=== PATIENT | female | born 1980 | race Caucasian/White ===

== ENCOUNTER 2016-09-12 16:25 | Emergency (ER) | payer OTHER ==
[2016-09-12] MEDS ORDERED: Albuterol/Ipratropium NEB.SOL* Albuterol 2.5 MG/Ipratropium 0.5 MG 3 ML INH ONE (17:20)
[2016-09-12] MEDS ORDERED: Dexamethasone IV* 10 MG in NS 0.9% 50 ML* 50 ML IVPB ONE (17:20)
[2016-09-12] MEDS ORDERED: diPHENhydraMINE IV* 25 MG in NS 0.9% 50 ML* 50 ML IVPB ONE (17:20)
[2016-09-12] MEDS ORDERED: NS 0.9% 1000 ML* 1,000 ML IV ONE (17:22)
[2016-09-12] MEDS ORDERED: EPINEPHrine AMP 1 MG/ML IM ONE (17:22)
[2016-09-12] MEDS ORDERED: Dexamethasone IV* 4 MG/ML 1 ML (4 MG) IV SLOW PU ONE (17:22)
[2016-09-12 18:29] LABS: Hematocrit 36 % (35-47); Mean Corpuscular HGB Conc 33 g/dl (31-36); Mean Corpuscular Hemoglobin 29 pg (27-31); Mean Corpuscular Volume 89 fL (80-97); Mean Platelet Volume 8 um3 (7.4-10.4); Red Blood Count 4.09 10^6/ul (4.0-5.4); Red Cell Distribution Width 13 % (10.5-15); White Blood Count 13.2 10^3/ul (3.5-10.8)
[2016-09-12 18:44] LABS: BUN/Creatinine Ratio 9.2 (8-20); Calcium 8.2 mg/dL (8.6-10.3); EGFR African American 133.4 (>60); EGFR Non-African American 103.7 (>60)
[2016-09-12 18:45] LABS: Potassium 2.7 mmol/L (3.5-5.0)
[2016-09-12 18:50] VITALS: BP 103/49
[2016-09-12] MEDS ORDERED: KCL 20 MEQ/100 ML IVPREMIX* 20 MEQ/100 ML BAG IV ONE (18:56)
[2016-09-12] MEDS ORDERED: EPINEPHrine PEN ADULT(NF) 0.3 MG SYRINGE IM ONE (21:00)
--- NOTE | 2016-09-13 00:57 | ED ---
Finn Tate Salem, scribed for Herminio Williamson MD on 09/12/16 at 1717 . Allergic Reaction/Systemic - HPI Summary HPI Summary: Patient is a 35 y/o F who presents to the ED per EMS with an allergic reaction s /p bee sting since 8-10 minutes [employer]. Pt received two doses of epinephrine, one dose of Benadryl en route, as well as a Duoneb and Albuterol. EMS denies giving any steroids. She reports SOB, throat tightening, and chest tightening, but denies hives. PMHx of Asthma. Pt denies EtOH or tobacco use. - History of Current Complaint Chief Complaint: EDAllergicReaction Hx Obtained From: Patient, EMS Hx Last Menstrual Period: 03/16/16 Onset/Duration: Gradual Onset, Started minutes ago, Still Present Timing: Constant Severity Initially: Moderate Severity Currently: Moderate Location: Diffuse Character: Swelling Aggravating Factor(s): Nothing Alleviating Factor(s): Antihistamines, Epinephrine Associated Signs And Symptoms: Positive: Difficulty Breathing, Throat Tightening - Allergies/Home Medications Allergies/Adverse Reactions: Allergies Allergy/AdvReac Type Severity Reaction Status Date / Time Morphine Allergy Intermediate Hives Verified 03/21/16 19:46 Clavulanic Acid Allergy Unknown Verified 03/21/16 19:46 [From Augmentin] Reaction Details PMH/Surg Hx/FS Hx/Imm Hx Endocrine/Hematology History: Reports: Hx Thyroid Disease Denies: Hx Diabetes Cardiovascular History: Denies: Hx Congestive Heart Failure, Hx Deep Vein Thrombosis, Hx Hypertension , Hx Myocardial Infarction, Hx Pacemaker/ICD Respiratory History: Reports: Hx Asthma Denies: Hx Chronic Obstructive Pulmonary Disease (COPD), Hx Lung Cancer, Hx Pneumonia, Hx Pulmonary Embolism GI History: Denies: Hx Gall Bladder Disease, Hx Gastrointestinal Bleed, Hx Ulcer, Hx Urosepsis History: Denies: Hx Kidney Stones, Hx Renal Disease Neurological History: Denies: Hx Dementia, Hx Migraine, Hx Seizures, Hx Transient Ischemic Attacks (TIA) Psychiatric History: Denies: Hx Anxiety, Hx Depression, Hx Schizophrenia, Hx Bipolar Disorder - Surgical History Surgery Procedure, Year, and Place: FOUR C SECTIONS,T&A, tubal ligation Infectious Disease History: Denies: Hx Clostridium Difficile, Hx Hepatitis, Hx Human Immunodeficiency Virus (HIV), Hx of Known/Suspected MRSA, Hx Shingles, Hx Tuberculosis, Hx Known/ Suspected VRE, Hx Known/Suspected VRSA, History Other Infectious Disease - Family History Known Family History: Negative: Cardiac Disease, Diabetes - Social History Alcohol Use: Occasionally Hx Substance Use: No Substance Use Type: Reports: None Hx Tobacco Use: No Smoking Status (MU): Never Smoked Tobacco Review of Systems Negative: Fever, Chills Negative: Erythema Positive: Other - Throat tightening. . Negative: Sore Throat Positive: Chest Pain Positive: Shortness Of Breath, Other - Chest tightening. . Negative: Cough Negative: Abdominal Pain, Vomiting, Nausea Negative: dysuria, hematuria Negative: Myalgia, Edema Skin: Other - No hives. Negative: Rash Neurological: Other - No dizziness. All Other Systems Reviewed And Are Negative: Yes Physical Exam - Summary Physical Exam Summary: Constitutional: Well-developed, Well-nourished, Alert. (-), Flushed skin. Skin: Warm, Dry. Bee sting to top of right breast. HENT: Normocephalic; Atraumatic, No angioedema. Eyes: Conjunctiva normal Neck: Musculoskeletal ROM normal neck. (-) JVD, (-) Stridor, (-) Tracheal deviation Cardio: Rhythm regular, rate normal, Heart sounds normal; Intact distal pulses; The pedal pulses are 2+ and symmetric. Radial pulses are 2+ and symmetric. (-) Murmur Pulmonary/Chest wall: Expiratory wheezing. No stridor. Abd: Soft, (-) Tenderness, (-) Distension, (-) Guarding, (-) Rebound Musculoskeletal: (-) Edema Lymph: (-) Cervical adenopathy Neuro: Alert, Oriented x3 Psych: Mood and affect Normal Triage Information Reviewed: Yes Vital Signs On Initial Exam: Last Vital Signs 09/12/16 16:28 Temperature 99.1 F Pulse Rate 123 Respiratory 23 Rate Blood Pressure 116/53 (mmHg) O2 Sat by Pulse 100 Oximetry Vital Signs Reviewed: Yes Diagnostics - Laboratory Result Diagrams: 09/12/16 18:20 09/12/16 18:20 Lab Statement: Any lab studies that have been ordered have been reviewed, and results considered in the medical decision making process. Re-Evaluation - Re-Evaluation First Eval Re-Evaluation Time: 19:51 Comment: Discussed plan. Pt refuses admission. Allergic Reaction Course/Dx - Course Course Of Treatment: 35 y/o F presents with an allergic reaction to bee sting. She reports SOB, throat tightening, and chest tightening, but denies hives. She received two doses of epinephrine, one dose of Benadryl, a Duoneb, and Albuterol en route. She then received Duoneb, Benadryl, Decadron, and Epi in the ED course. Pt states that she has a hx of hypokalemia and of intubation for anaphylaxis. Pt was recommended to be admitted due to multiple doses of Epi and hx of anaphylaxis, but pt denies despite discussion of concern over a compromised airway and . She states that she has five children at home. Will DC pt with epi pen. - Diagnoses Provider Diagnoses: Bee sting-induced anaphylaxis Discharge - Discharge Plan Condition: Stable Disposition: AGAINST MEDICAL ADVICE Prescriptions: Epinephrine [Epipen 2-Andi] 0.3 mg IM SEE INSTRUCTIONS #2 inj Potassium Chlor TAB* [Potassium Chlor TAB 20 MEQ*] 40 meq PO DAILY #7 tab.er Referrals: Tiffany Roth MD [Primary Care Provider] - The documentation as recorded by the Finn ignacio Salem accurately reflects the service I personally performed and the decisions made by , Herminio Williamson MD.
== END 2016-09-12 20:45 | disposition left against medical advice (07) ==
LOC: ED 16:25
DX: T63.441A Toxic effect of venom of bees, accidental (unintentional), initial encounter (principal); R07.9 Chest pain, unspecified; R06.02 Shortness of breath; T78.2XXA Anaphylactic shock, unspecified, initial encounter; Y92.9 Unspecified place or not applicable
CPT/HCPCS: 36415; 80048; 85027; 94640; 94760; 96372; 99283; A9270-GY; J0171; J1100; J1200; J3480

== ENCOUNTER 2016-10-10 11:47 | Emergency (ER) | payer OTHER ==
[2016-10-10] MEDS ORDERED: Albuterol/Ipratropium NEB.SOL* Albuterol 2.5 MG/Ipratropium 0.5 MG 3 ML INH ONE (13:06)
[2016-10-10 14:45] VITALS: BP 118/51
--- NOTE | 2016-10-25 15:20 | ED ---
Shortness of Breath - HPI Summary HPI Summary: Patient presents with SOB. 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 She was given 2 duo nebs en route to ED. She has a history of having allergic reactions to dust, and this feels similar to other episodes. She denies cough, throat closing sensation, sputum production or fevers, chills or sweats. - History of Current Complaint Chief Complaint: EDShortnessOfBreath Time Seen by Provider: 10/10/16 13:26 Hx Obtained From: Patient Onset/Duration: Sudden Onset Timing: Constant Current Severity: Severe Dyspnea At: Rest Aggrevating Factors: Allergens Alleviating Factors: Bronchodilators, Upright Position Associated Signs & Symptoms: Negative - Risk Factors Pulmonary Embolism: Negative Cardiac: Negative Pseudomonas: Chronic Lung Disease Tuberculosis: Negative - Allergy/Home Medications Allergies/Adverse Reactions: Allergies Allergy/AdvReac Type Severity Reaction Status Date / Time Morphine Allergy Intermediate Hives Verified 03/21/16 19:46 Bee Venom Allergy Anaphylatic Verified 10/10/16 11:56 Shock Clavulanic Acid Allergy Unknown Verified 03/21/16 19:46 [From Augmentin] Reaction Details PMH/Surg Hx/FS Hx/Imm Hx Previously Healthy: Yes Endocrine/Hematology History: Reports: Hx Thyroid Disease Denies: Hx Diabetes Cardiovascular History: Denies: Hx Congestive Heart Failure, Hx Deep Vein Thrombosis, Hx Hypertension , Hx Myocardial Infarction, Hx Pacemaker/ICD Respiratory History: Reports: Hx Asthma Denies: Hx Chronic Obstructive Pulmonary Disease (COPD), Hx Lung Cancer, Hx Pneumonia, Hx Pulmonary Embolism GI History: Denies: Hx Gall Bladder Disease, Hx Gastrointestinal Bleed, Hx Ulcer, Hx Urosepsis History: Denies: Hx Kidney Stones, Hx Renal Disease Neurological History: Denies: Hx Dementia, Hx Migraine, Hx Seizures, Hx Transient Ischemic Attacks (TIA) Psychiatric History: Denies: Hx Anxiety, Hx Depression, Hx Schizophrenia, Hx Bipolar Disorder - Surgical History Surgery Procedure, Year, and Place: FOUR C SECTIONS,T&A, tubal ligation - Immunization History Hx Pertussis Vaccination: No Immunizations Up to Date: Unable to Obtain/Confirm Infectious Disease History: No Infectious Disease History: Denies: Hx Clostridium Difficile, Hx Hepatitis, Hx Human Immunodeficiency Virus (HIV), Hx of Known/Suspected MRSA, Hx Shingles, Hx Tuberculosis, Hx Known/ Suspected VRE, Hx Known/Suspected VRSA, History Other Infectious Disease, Traveled Outside the [place] in Last 30 Days - Family History Known Family History: Positive: None, Unknown Negative: Cardiac Disease, Diabetes - Social History Occupation: Employed Full-time Lives: With Family Alcohol Use: None Hx Substance Use: No Substance Use Type: Reports: None Hx Tobacco Use: No Smoking Status (MU): Never Smoked Tobacco Review of Systems Constitutional: Negative Eyes: Negative Cardiovascular: Negative Positive: Shortness Of Breath Gastrointestinal: Negative Positive: no symptoms reported, see HPI Musculoskeletal: Negative Neurological: Negative Psychological: Normal All Other Systems Reviewed And Are Negative: Yes Physical Exam Triage Information Reviewed: Yes Vital Signs On Initial Exam: Initial Vitals Temp Pulse Resp BP Pulse Ox 98.7 F 104 24 132/49 100 10/10/16 11:50 10/10/16 11:50 10/10/16 11:50 10/10/16 11:50 10/10/16 11:50 Vital Signs Reviewed: Yes Appearance: Positive: Well-Appearing, Well-Nourished Skin: Positive: Warm, Skin Color Reflects Adequate Perfusion Head/Face: Positive: Normal Head/Face Inspection Eyes: Positive: EOMI, CASSIA, Conjunctiva Clear Neck: Positive: Supple, No Lymphadenopathy Respiratory/Lung Sounds: Positive: Wheezes Cardiovascular: Positive: Normal, RRR, Pulses are Symmetrical in both Upper and Lower Extremities Musculoskeletal: Positive: Normal, Strength/ROM Intact Neurological: Positive: Sensory/Motor Intact, Alert, Oriented to Person Place, Time Psychiatric: Positive: Normal AVPU Assessment: Alert - [place] Coma Scale Coma Scale Total: 15 Diagnostics - Vital Signs Vital Signs Temp Pulse Resp BP Pulse Ox 10/10/16 14:42 88 14 118/51 99 10/10/16 14:00 91 19 100 10/10/16 13:47 93 17 100 10/10/16 13:32 76 18 99 10/10/16 13:26 80 18 128/52 100 10/10/16 11:53 98.7 F 107 23 132/49 100 10/10/16 11:50 98.7 F 104 24 132/49 100 - Laboratory Lab Statement: Any lab studies that have been ordered have been reviewed, and results considered in the medical decision making process. Course/Dx - Course Course Of Treatment: Patient given 2 duonebs by respiratory in ED. Patient feeling better after 1 hour. She has nebulizer and inhaler treatments at home. She is requesting discharge. - Diagnoses Differential Diagnosis/HQI/PQRI: Positive: Airway Obstruction, Asthma, Bronchitis Provider Diagnoses: Allergic reaction Discharge - Discharge Plan Condition: Stable Disposition: HOME Patient Education Materials: Anaphylaxis (ED) Referrals: Tiffany Roth MD [Primary Care Provider] - Additional Instructions: Follow up with PCP IF you develop any worsening symptoms, return to the ED right away!
== END 2016-10-10 14:45 | disposition home or self-care (01) ==
LOC: ED 11:47
DX: J45.901 Unspecified asthma with (acute) exacerbation (principal); E07.9 Disorder of thyroid, unspecified; Z88.5 Allergy status to narcotic agent; Z88.1 Allergy status to other antibiotic agents; Z91.030 Bee allergy status
CPT/HCPCS: 94640; 99281; A9270-GY

== ENCOUNTER 2016-12-23 13:51 | Emergency (ER) | payer OTHER ==
[2016-12-23] MEDS ORDERED: methylPREDNISolone 125 MG* 2 ML VIAL IV ONE (13:53)
[2016-12-23] MEDS ORDERED: NS 0.9% 1000 ML* 1,000 ML IV ONE (13:53)
[2016-12-23] MEDS ORDERED: Albuterol/Ipratropium NEB.SOL* Albuterol 2.5 MG/Ipratropium 0.5 MG 3 ML INH SCH (14:00)
[2016-12-23 14:18] LABS: Hematocrit 39 % (35-47); Hemoglobin 13.3 g/dl (12.0-16.0); Mean Corpuscular HGB Conc 34 g/dl (31-36); Mean Corpuscular Hemoglobin 31 pg (27-31); Mean Corpuscular Volume 90 fL (80-97); Mean Platelet Volume 8 um3 (7.4-10.4); Red Blood Count 4.33 10^6/ul (4.0-5.4); Red Cell Distribution Width 14 % (10.5-15); White Blood Count 6.8 10^3/ul (3.5-10.8)
[2016-12-23 14:32] LABS: ALT 14 U/L (7-52); Albumin 3.5 g/dL (3.2-5.2); Alkaline Phosphatase 43 U/L (34-104); BUN/Creatinine Ratio 17.7 (8-20); Blood Urea Nitrogen 11 mg/dL (6-24); C Reactive Protein 1.58 mg/L (< 5.00); CO2 Carbon Dioxide 25 mmol/L (22-32); Chloride 105 mmol/L (101-111); EGFR African American 140.1 (>60); EGFR Non-African American 108.9 (>60); Globulin 3.4 g/dL (2-4); Glucose 91 mg/dL (70-100); Sodium 136 mmol/L (133-145); Total Protein 6.9 g/dL (6.4-8.9)
--- NOTE | 2016-12-23 14:35 | RAD ---
HISTORY: Shortness of breath COMPARISONS: None VIEWS: 1: frontal portable view of the chest at 2:15 PM FINDINGS: LINES AND TUBES: None. CARDIOMEDIASTINAL SILHOUETTE: The cardiomediastinal silhouette is normal for portable technique. PLEURA: The costophrenic angles are sharp. No pleural abnormalities are noted. LUNG PARENCHYMA: The lungs are clear. ABDOMEN: The upper abdomen is clear. There is no subphrenic gas. BONES AND SOFT TISSUES: No bone or soft tissue abnormalities are noted. IMPRESSION: NO ACTIVE CARDIOPULMONARY DISEASE.
[2016-12-23 14:45] LABS: Anion Gap 6 mmol/L (2-11)
[2016-12-23 15:22] VITALS: BP 113/63
--- NOTE | 2016-12-23 18:53 | ED ---
Brandan Taet Angela, scribed for Clemente Flores MD on 12/23/16 at 1426 . Asthma - HPI Summary HPI Summary: This pt is a 36 y/o BIB[employer] female presenting to [facility] c/o asthma exacerbation today. Pt reports she was at work when she began to experience SOB. She states her chest got very tight and describes it as if an elephant was sitting on it. Pt denies fever, chills, chest pain, throat tightening, swelling of the tongue , facial swelling. At work pt was given an epi pen, but she did not administer it. PMHx: asthma. En route, pt had 1 albuterol treatment. - History of Current Complaint Stated Complaint: SOB Time Seen by Provider: 12/23/16 13:53 Hx Obtained From: Patient Hx Last Menstrual Period: 03/16/16 Onset/Duration: Sudden Onset Pain Intensity: 0 Location/Character: Wheezing Associated Signs and Symptoms: Positive: Shortness of Breath. Negative: Calf Pain, Edema - Allergy/Home Medications Allergies/Adverse Reactions: Allergies Allergy/AdvReac Type Severity Reaction Status Date / Time Morphine Allergy Intermediate Hives Verified 03/21/16 19:46 Bee Venom Allergy Anaphylatic Verified 10/10/16 11:56 Shock Clavulanic Acid Allergy Unknown Verified 03/21/16 19:46 [From Augmentin] Reaction Details PMH/Surg Hx/FS Hx/Imm Hx Endocrine/Hematology History: Reports: Hx Thyroid Disease Denies: Hx Diabetes Cardiovascular History: Denies: Hx Congestive Heart Failure, Hx Deep Vein Thrombosis, Hx Hypertension , Hx Myocardial Infarction, Hx Pacemaker/ICD Respiratory History: Reports: Hx Asthma Denies: Hx Chronic Obstructive Pulmonary Disease (COPD), Hx Lung Cancer, Hx Pneumonia, Hx Pulmonary Embolism GI History: Denies: Hx Gall Bladder Disease, Hx Gastrointestinal Bleed, Hx Ulcer, Hx Urosepsis History: Denies: Hx Kidney Stones, Hx Renal Disease Neurological History: Denies: Hx Dementia, Hx Migraine, Hx Seizures, Hx Transient Ischemic Attacks (TIA) Psychiatric History: Denies: Hx Anxiety, Hx Depression, Hx Schizophrenia, Hx Bipolar Disorder - Surgical History Surgery Procedure, Year, and Place: FOUR C SECTIONS,T&A, tubal ligation Infectious Disease History: Yes Infectious Disease History: Denies: Hx Clostridium Difficile, Hx Hepatitis, Hx Human Immunodeficiency Virus (HIV), Hx of Known/Suspected MRSA, Hx Shingles, Hx Tuberculosis, Hx Known/ Suspected VRE, Hx Known/Suspected VRSA, History Other Infectious Disease, Traveled Outside the [place] in Last 30 Days - Family History Known Family History: Negative: Cardiac Disease, Diabetes - Social History Alcohol Use: None Hx Substance Use: No Substance Use Type: Reports: None Hx Tobacco Use: No Smoking Status (MU): Never Smoked Tobacco Review of Systems Negative: Fever, Chills Negative: Chest Pain Positive: Shortness Of Breath Negative: Abdominal Pain, Vomiting, Diarrhea Skin: Negative Neurological: Negative All Other Systems Reviewed And Are Negative: Yes Physical Exam - Summary Physical Exam Summary: VITAL SIGNS: Reviewed. GENERAL: Patient is a well-developed and nourished female who is lying comfortable in the stretcher. HEAD AND FACE: No signs of trauma. ~No ecchymosis, hematomas or skull depressions. No sinus tenderness. EYES: PERRLA, EOMI x 2, No injected conjunctiva, no nystagmus. EARS: Hearing grossly intact. Ear canals and tympanic membranes are within normal limits. MOUTH: Oropharynx within normal limits. NECK: Supple, trachea is midline, no adenopathy, no JVD, no carotid bruit, no c- spine tenderness, neck with full ROM. CHEST: Symmetric, no tenderness at palpation LUNGS: Pt is very tight with wheezing episodes in lungs. CVS: Regular rate and rhythm, S1 and S2 present, no murmurs or gallops appreciated. ABDOMEN: Soft, non-tender. No signs of distention. No rebound no guarding, and no masses palpated. Bowel sounds are normal. EXTREMITIES: FROM in all major joints, no edema, no cyanosis or clubbing. NEURO: Alert and oriented x 3. No acute neurological deficits. Speech is normal and follows commands. SKIN: Dry and warm Triage Information Reviewed: Yes Vital Signs On Initial Exam: Initial Vitals Temp Pulse Resp BP Pulse Ox 98.6 F 92 16 120/62 99 12/23/16 14:00 12/23/16 14:00 12/23/16 14:00 12/23/16 14:00 12/23/16 14:00 Vital Signs Reviewed: Yes Diagnostics - Vital Signs Vital Signs Temp Pulse Resp BP Pulse Ox 12/23/16 14:12 76 16 100 12/23/16 14:00 98.6 F 92 16 120/62 99 - Laboratory Lab Results: Lab Results 12/23/16 Range/Units 14:08 WBC 6.8 (3.5-10.8) 10^3/ul RBC 4.33 (4.0-5.4) 10^6/ul Hgb 13.3 (12.0-16.0) g/dl Hct 39 (35-47) % MCV 90 (80-97) fL MCH 31 (27-31) pg MCHC 34 (31-36) g/dl RDW 14 (10.5-15) % Plt Count 260 (150-450) 10^3/ul MPV 8 (7.4-10.4) um3 Neut % (Auto) 57.4 (38-83) % Lymph % (Auto) 32.8 (25-47) % [place] % (Auto) 7.7 (1-9) % Eos % (Auto) 1.6 (0-6) % Baso % (Auto) 0.5 (0-2) % Absolute Neuts (auto) 3.9 (1.5-7.7) 10^3/ul Absolute Lymphs (auto) 2.2 (1.0-4.8) 10^3/ul Absolute Monos (auto) 0.5 (0-0.8) 10^3/ul Absolute Eos (auto) 0.1 (0-0.6) 10^3/ul Absolute Basos (auto) 0 (0-0.2) 10^3/ul Absolute Nucleated RBC 0 10^3/ul Nucleated RBC % 0.1 Result Diagrams: 12/23/16 14:08 12/23/16 15:00 Lab Statement: Any lab studies that have been ordered have been reviewed, and results considered in the medical decision making process. - Radiology Chest XR Xray Interpretation: No Acute Changes - IMPRESSION: No active cardiopulmonary disease. ED physician has reviewed this radiology report and agrees. Radiology Interpretation Completed By: Radiologist - EKG 1403 Cardiac Rate: NL - 74 bpm EKG Rhythm: Sinus Rhythm EKG Interpretation: No ST elevation. Normal axis. Re-Evaluation - Re-Evaluation First Eval Re-Evaluation Time: 14:51 Comment: Pt is feeling much better. I re-examined the lungs and they are clear. Asthma Course/Dx - Course Assessment/Plan: This pt is a 36 y/o BIB[employer] female presenting to [facility] c/o asthma exacerbation today. Pt reports she was at work when she began to experience SOB. She states her chest got very tight and describes it as if an elephant was sitting on it. Pt denies fever, chills, chest pain, throat tightening, swelling of the tongue, facial swelling. At work pt was given an epi pen, but she did not administer it. PMHx: asthma. En route, pt had 1 albuterol treatment. Test results without any significant abnormalities except for hypokalemia. She will take her potassium suplements. Chest XR is negative for an acute pathology. Pt was given Duoneb and Solu-medrol, and her symptoms resolved. On re-examination, the pts lungs are clear to auscultation bilaterally without wheezing. Since the symptoms are better she will be discharged home with follow up from her PCP. Pt was given a prescription for albuterol and prednisone. Pt is hemodynamically stable, alert and oriented x3. - Diagnoses Differential Diagnosis/HQI/PQRI: Positive: Acute Asthma, Bronchitis, COPD Excerbation, Pneumonia Provider Diagnoses: Asthma exacerbation Discharge - Discharge Plan Condition: Stable Disposition: HOME Prescriptions: Albuterol HFA INHALER* [Ventolin HFA Inhaler*] 2 puff INH Q4H PRN #1 mdi PRN Reason: Shortness Of Breath predniSONE TAB* [Deltasone TAB*] 40 mg PO DAILY #8 tab Patient Education Materials: Asthma (ED) Referrals: Tiffany Roth MD [Primary Care Provider] - Additional Instructions: Please follow up with your primary care provider. The documentation as recorded by the Brandan ignacio Angela accurately reflects the service I personally performed and the decisions made by , Clemente Flores MD.
== END 2016-12-23 15:21 | disposition home or self-care (01) ==
LOC: ED 13:51
DX: J45.901 Unspecified asthma with (acute) exacerbation (principal); Z88.5 Allergy status to narcotic agent; Z88.1 Allergy status to other antibiotic agents; Z91.030 Bee allergy status; E07.9 Disorder of thyroid, unspecified
CPT/HCPCS: 36415; 71010; 80053; 85025; 86140; 93005; 94640; 96361; 96374; 99282; A9270-GY; J2930

== ENCOUNTER 2017-04-23 13:13 | Emergency (ER) | payer OTHER ==
[2017-04-23] MEDS ORDERED: Albuterol/Ipratropium NEB.SOL* Albuterol 2.5 MG/Ipratropium 0.5 MG 3 ML ONE (13:19)
[2017-04-23] MEDS ORDERED: Dexamethasone IV* 4 MG/ML 5 ML VIAL (20 MG) ONE (13:21)
[2017-04-23] MEDS ORDERED: Famotidine IV* 10 MG/ML 2 ML (20 mg) ONE (13:21)
[2017-04-23] MEDS ORDERED: NS 0.9% 1000 ML* 1,000 ML IV ONE (13:24)
[2017-04-23] MEDS ORDERED: Famotidine IV* 10 MG/ML 2 ML (20 mg) IV SLOW PU ONE (13:29)
[2017-04-23] MEDS ORDERED: Dexamethasone IV* 4 MG/ML 1 ML (4 MG) IV SLOW PU ONE (13:29)
[2017-04-23] MEDS ORDERED: Albuterol/Ipratropium NEB.SOL* Albuterol 2.5 MG/Ipratropium 0.5 MG 3 ML INH ONE (13:37)
[2017-04-23 13:43] LABS: ABS Basophils 0.1 10^3/ul (0-0.2); ABS Eosinophils 0.1 10^3/ul (0-0.6); ABS Lymphocytes 3.8 10^3/ul (1.0-4.8); ABS Monocytes 0.6 10^3/ul (0-0.8); ABS Neutrophils 3.6 10^3/ul (1.5-7.7); ABS Nucleated RBC 0 10^3/ul; Eosinophil % 1.2 % (0-6); Hematocrit 40 % (35-47); Hemoglobin 13.8 g/dl (12.0-16.0); Lymphocyte % 46.3 % (25-47); Mean Corpuscular HGB Conc 34 g/dl (31-36); Mean Corpuscular Hemoglobin 31 pg (27-31); Mean Corpuscular Volume 90 fL (80-97); Mean Platelet Volume 7 um3 (7.4-10.4); Nucleated Red Blood Cells % 0; Platelet Count 363 10^3/ul (150-450); Red Blood Count 4.44 10^6/ul (4.0-5.4); Red Cell Distribution Width 13 % (10.5-15); White Blood Count 8.3 10^3/ul (3.5-10.8)
--- NOTE | 2017-04-23 13:57 | RAD ---
HISTORY: Shortness of breath, dyspnea COMPARISONS: December 23, 2016 VIEWS: 1: frontal portable view of the chest at 1:40 PM FINDINGS: LINES AND TUBES: None. CARDIOMEDIASTINAL SILHOUETTE: The cardiomediastinal silhouette is normal for portable technique. PLEURA: The costophrenic angles are sharp. No pleural abnormalities are noted. LUNG PARENCHYMA: The lungs are clear. ABDOMEN: The upper abdomen is clear. There is no subphrenic gas. BONES AND SOFT TISSUES: No bone or soft tissue abnormalities are noted. IMPRESSION: NO ACTIVE CARDIOPULMONARY DISEASE.
[2017-04-23 13:59] LABS: EGFR Non-African American 106.9 (>60)
[2017-04-23] MEDS ORDERED: Potassium Chlor TAB* 20 MEQ TAB.ER PO ONE (14:28)
[2017-04-23 15:30] VITALS: BP 132/64
--- NOTE | 2017-04-24 16:30 | ED ---
Amilcar Tate Nikita, scribed for Clemente Folres MD on 04/23/17 at 1400 . Allergic Reaction/Systemic - HPI Summary HPI Summary: This patient is a 36 year old F BIBA to ED with a chief complaint of allergic reaction since 1240 today. She almost had a respiratory arrest and was still conscious at the scene. Pt was given 2 rounds of epinephrine on route. Symptoms aggravated and alleviated by nothing. EMS reports the pt was hoarse, wheezing, pallor, feeling cold, dyspnea, stridor, and cyanotic at the scene, and was unable to speak. Pt does not know what she is allergic to. Pt has a history of the same episode, collapsed lungs, and was intubated twice in the past. - History of Current Complaint Chief Complaint: EDAllergicReaction Time Seen by Provider: 04/23/17 13:23 Hx Obtained From: Patient, EMS Hx Last Menstrual Period: 03/16/16 Onset/Duration: Sudden Onset, Started hours ago, Still Present Timing: Constant, Lasting Hours Severity Currently: None Pain Intensity: 0 Pain Scale Used: 0-10 Numeric Aggravating Factor(s): Nothing Alleviating Factor(s): Nothing Associated Signs And Symptoms: Positive: Other: - hoarse, wheezing, pallor, feeling cold, dyspnea, stridor, and cyanotic at the scene, and was unable to speak. - Allergies/Home Medications Allergies/Adverse Reactions: Allergies Allergy/AdvReac Type Severity Reaction Status Date / Time Morphine Allergy Intermediate Hives Verified 03/21/16 19:46 Bee Venom Allergy Anaphylatic Verified 10/10/16 11:56 Shock Clavulanic Acid Allergy Unknown Verified 03/21/16 19:46 [From Augmentin] Reaction Details PMH/Surg Hx/FS Hx/Imm Hx Endocrine/Hematology History: Reports: Hx Thyroid Disease Denies: Hx Diabetes Cardiovascular History: Denies: Hx Congestive Heart Failure, Hx Deep Vein Thrombosis, Hx Hypertension , Hx Myocardial Infarction, Hx Pacemaker/ICD Respiratory History: Reports: Hx Asthma Denies: Hx Chronic Obstructive Pulmonary Disease (COPD), Hx Lung Cancer, Hx Pneumonia, Hx Pulmonary Embolism GI History: Denies: Hx Gall Bladder Disease, Hx Gastrointestinal Bleed, Hx Ulcer, Hx Urosepsis History: Denies: Hx Kidney Stones, Hx Renal Disease Neurological History: Denies: Hx Dementia, Hx Migraine, Hx Seizures, Hx Transient Ischemic Attacks (TIA) Psychiatric History: Denies: Hx Anxiety, Hx Depression, Hx Schizophrenia, Hx Bipolar Disorder - Surgical History Surgery Procedure, Year, and Place: FOUR C SECTIONS,T&A, tubal ligation Infectious Disease History: Unable to Obtain/Confirm Infectious Disease History: Denies: Hx Clostridium Difficile, Hx Hepatitis, Hx Human Immunodeficiency Virus (HIV), Hx of Known/Suspected MRSA, Hx Shingles, Hx Tuberculosis, Hx Known/ Suspected VRE, Hx Known/Suspected VRSA, History Other Infectious Disease, Traveled Outside the [place] in Last 30 Days - Family History Known Family History: Positive: None, Cardiac Disease, Diabetes - Social History Alcohol Use: None Hx Substance Use: No Substance Use Type: Reports: None Hx Tobacco Use: No Smoking Status (MU): Never Smoked Tobacco Review of Systems Positive: Chills, Other - pallor, cyanotic . Negative: Fever Positive: Other - was not able to speak. throat was closed, now resolved Positive: Other - hoarse, wheezing, stridor, dypsnea Positive: Other - cold, pale and cyanotic All Other Systems Reviewed And Are Negative: Yes Physical Exam - Summary Physical Exam Summary: VITAL SIGNS: Reviewed. GENERAL: ~Patient is a well-developed and nourished female who is lying comfortable in the stretcher. ~Patient is not in any acute respiratory distress. HEAD AND FACE: No signs of trauma. ~No ecchymosis, hematomas or skull depressions. No sinus tenderness. EYES: PERRLA, EOMI x 2, No injected conjunctiva, no nystagmus. EARS: Hearing grossly intact. Ear canals and tympanic membranes are within normal limits. MOUTH: Oropharynx within normal limits. No trismus, no swelling in tongue and lip. Throat is no longer closing up. Is able to speak sentences after 2 doses of epinephrine and decadron. NECK: Supple, trachea is midline, no adenopathy, no JVD, no carotid bruit, no c- spine tenderness, neck with full ROM. CHEST: Symmetric, no tenderness at palpation. . LUNGS: Bilateral wheezing with decreased breath sounds. CVS: S1 and S2 present, no murmurs or gallops appreciated. Tachycardic ABDOMEN: Soft, non-tender. No signs of distention. No rebound no guarding, and no masses palpated. Bowel sounds are normal. EXTREMITIES: FROM in all major joints, no edema, no cyanosis or clubbing. NEURO: Alert and oriented x 3. No acute neurological deficits. Speech is normal and follows commands. SKIN: Dry and warm Triage Information Reviewed: Yes Vital Signs On Initial Exam: Initial Vitals Pulse Resp Pulse Ox 114 20 100 04/23/17 13:21 04/23/17 13:21 04/23/17 13:21 Vital Signs Reviewed: Yes Diagnostics - Vital Signs Vital Signs Temp Pulse Resp BP Pulse Ox 04/23/17 13:40 107 93 04/23/17 13:26 99.8 F 106 18 100/83 100 04/23/17 13:21 114 20 100 - Laboratory Lab Results: Lab Results 04/23/17 Range/Units 13:34 WBC 8.3 (3.5-10.8) 10^3/ul RBC 4.44 (4.0-5.4) 10^6/ul Hgb 13.8 (12.0-16.0) g/dl Hct 40 (35-47) % MCV 90 (80-97) fL MCH 31 (27-31) pg MCHC 34 (31-36) g/dl RDW 13 (10.5-15) % Plt Count 363 (150-450) 10^3/ul MPV 7 L (7.4-10.4) um3 Neut % (Auto) 43.7 (38-83) % Lymph % (Auto) 46.3 (25-47) % [place] % (Auto) 7.8 (1-9) % Eos % (Auto) 1.2 (0-6) % Baso % (Auto) 1.0 (0-2) % Absolute Neuts (auto) 3.6 (1.5-7.7) 10^3/ul Absolute Lymphs (auto) 3.8 (1.0-4.8) 10^3/ul Absolute Monos (auto) 0.6 (0-0.8) 10^3/ul Absolute Eos (auto) 0.1 (0-0.6) 10^3/ul Absolute Basos (auto) 0.1 (0-0.2) 10^3/ul Absolute Nucleated RBC 0 10^3/ul Nucleated RBC % 0 Result Diagrams: 04/23/17 13:34 04/23/17 13:34 Lab Statement: Any lab studies that have been ordered have been reviewed, and results considered in the medical decision making process. - Radiology CXR Radiology Interpretation Completed By: Radiologist - NO ACTIVE CARDIOPULMONARY DISEASE. ED physician has reviewed this radiology report. - EKG 1337 Cardiac Rate: Tachycardia EKG Rhythm: Sinus Tachycardia - 102 BPM EKG Interpretation: Poor quality for reading, similar to previous 12.23.16. No STEMI. Re-Evaluation - Re-Evaluation First Eval Re-Evaluation Time: 13:47 Change: Improved Comment: pt feels better, her throat is not closed, lungs are clear, no wheezing. Second Eval Re-Evaluation Time: 14:30 Change: Improved Comment: Pt is wheezing a bit now. Pt feels improved. Third Eval Re-Evaluation Time: 14:44 Comment: Pt does not want to stay in the ED and wants to be discharged. Pt will sign AMA. Allergic Reaction Course/Dx - Course Assessment/Plan: This patient is a 36 year old F BIBA to ED with a chief complaint of allergic reaction since 1240 today. Per EMS, the pt was hypotensive and hypoxic with diffused wheezing secondary anaphylactic reaction. Pt used one epi-pen. One more epi was given by EMS. In the ED course, pt was given decadron, Pepcid, IV fluids, and duoneb. Her symptoms improved. However because she was given 2 doses of epi, I discussed with Dr. Goddard at 1436 who agrees to accept the pt for admission. Upon re-eval at 1444 the pt didnt want to stay after agreeing to be admitted. Pt wanted to be discharged and signed AMA. Pt understood the risks of signing AMA and agreed. Pt and friend signed AMA. Pt was discharged with anaphylactic reaction and AMA. The pt is hemodynamically stable, alert and oriented x3. I extensively discussed with the patient the benefits and risk of leaving AMA. I also discussed the alternatives to leaving AMA, however, the patient still insist to leave the hospital AMA.. The primary nurse and the charge nurse also strongly recommended that the patient should not leave AMA. Patient understands the risk of leaving AMA, which includes but is not restricted to . Patient is Alert and oriented times three and patient verbalizes understanding. Patient has full capacity and is cognitively intact. Patient signed the AMA form. Patient was also advised to return to ED if he changes his mind or if the symptoms worsen or other symptoms appear. Patient understands and agrees. - Diagnoses Differential Diagnosis/HQI/PQRI: Positive: Airway Obstruction, Anaphylaxis, Angioedema, Local Allergic Reaction, Urticaria, Other - anaphylactic reaction and left AMA Provider Diagnoses: Anaphylactic reaction, Left against medical advice - Provider Notifications Discussed Care Of Patient With: Shellie Goddard Time Discussed With Above Provider: 14:36 Instructed by Provider To: Other - Consulted Dr. Goddard who accepts pt for admission. Discharge - Discharge Plan Condition: Stable Disposition: AGAINST MEDICAL ADVICE Patient Education Materials: Anaphylaxis (ED) Referrals: Tiffany Roth MD [Primary Care Provider] - 3 Days Additional Instructions: RETURN TO THE ED IF ANY WORSENING SYMPTOMS OR CONDITIONS. The documentation as recorded by the Amilcar ignacio Nikita accurately reflects the service I personally performed and the decisions made by Mark francis Walter, MD.
== END 2017-04-23 15:28 | disposition left against medical advice (07) ==
LOC: ED 13:13
DX: T78.2XXA Anaphylactic shock, unspecified, initial encounter (principal); Z53.21 Procedure and treatment not carried out due to patient leaving prior to being seen by health care provider
CPT/HCPCS: 36415; 71045; 80053; 83880; 84702; 85025; 86140; 93005; 94640; 96374; 96375; 99284; A9270-GY; J1100

== ENCOUNTER 2017-05-24 20:02 | Emergency (ER) | payer OTHER ==
[2017-05-24 20:25] VITALS: BP 122/59
[2017-05-24] MEDS ORDERED: Azithromycin TAB* 250 MG PO ONE (20:41)
--- NOTE | 2017-05-24 21:06 | UC ---
Throat Pain/Nasal Roddy HPI - HPI Summary HPI Summary: 36 yo female with sore throat x 1 days daughter being rxed for strep - History of Current Complaint Chief Complaint: UCGeneralIllness Stated Complaint: SORE THROAT Time Seen by Provider: 05/24/17 20:39 Hx Obtained From: Patient Hx Last Menstrual Period: 03/16/16 Onset/Duration: Gradual Onset Severity: Moderate Pain Intensity: 6 Pain Scale Used: 0-10 Numeric Cough: None Related History: Prior ENT Surgery, T & A - Allergies/Home Medications Allergies/Adverse Reactions: Allergies Allergy/AdvReac Type Severity Reaction Status Date / Time MS Morphine [Morphine] Allergy Intermediate Hives Verified 05/24/17 20:25 MS Bee Venom [Bee Venom] Allergy Anaphylatic Verified 05/24/17 20:25 Shock MS Clavulanic Acid Allergy Unknown Verified 05/24/17 20:25 [From Augmentin] Reaction Details Home Medications: Home Medications Montelukast Sodium TAB* [Singulair TAB*] 5 mg PO DAILY 05/24/17 [History Confirmed 05/24/17] PMH/Surg Hx/FS Hx/Imm Hx Previously Healthy: Yes Respiratory History: Asthma - Surgical History Surgical History: Yes Surgery Procedure, Year, and Place: FOUR C SECTIONS,T&A, tubal ligation - Family History Known Family History: Positive: Cardiac Disease, Diabetes Negative: Respiratory Disease - Social History Alcohol Use: None Substance Use Type: None Smoking Status (MU): Never Smoked Tobacco - Immunization History Most Recent Influenza Vaccination: March 2015 Review of Systems Constitutional: Negative Skin: Negative Eyes: Negative ENT: Sore Throat Respiratory: Negative Cardiovascular: Negative Gastrointestinal: Negative Genitourinary: Negative Motor: Negative Neurovascular: Negative Musculoskeletal: Negative Neurological: Negative Psychological: Negative Is Patient Immunocompromised?: No All Other Systems Reviewed And Are Negative: Yes Physical Exam Triage Information Reviewed: Yes Appearance: Well-Appearing, No Pain Distress, Well-Nourished Vital Signs: Initial Vital Signs Temp 98.7 F 05/24/17 20:20 Pulse 78 05/24/17 20:20 Resp 16 05/24/17 20:20 BP 122/59 05/24/17 20:20 Pulse Ox 100 05/24/17 20:20 Vital Signs Reviewed: Yes Eyes: Positive: Conjunctiva Clear ENT: Positive: Hearing grossly normal, Pharyngeal erythema, TMs normal, Uvula midline. Negative: Nasal congestion, Nasal drainage, Tonsillar swelling, Tonsillar exudate, Trismus, Muffled voice, Hoarse voice, Sinus tenderness Dental Exam: Normal Neck exam: Normal Neck: Positive: Supple, Enlarged Nodes @ - ant cerv Respiratory: Positive: Lungs clear, Normal breath sounds, No respiratory distress, No accessory muscle use Cardiovascular: Positive: RRR Musculoskeletal Exam: Normal Musculoskeletal: Positive: ROM Intact, No Edema Neurological Exam: Normal Neurological: Positive: Alert Skin Exam: Normal Diagnostics - Laboratory Diagnostic Studies Completed/Ordered: strep (-) Throat Pain/Nasal Course/Dx - Differential Dx/Diagnosis Provider Diagnoses: acute pharyngitis Discharge - Discharge Plan Condition: Stable Disposition: HOME Prescriptions: Azithromycin 500 mg PO DAILY #4 tablet Patient Education Materials: Pharyngitis (ED) Referrals: Tiffany Roth MD [Primary Care Provider] - 4 Days (if not better)
== END 2017-05-24 21:12 | disposition home or self-care (01) ==
LOC: UCCORT 20:02
DX: J02.9 Acute pharyngitis, unspecified (principal); J45.909 Unspecified asthma, uncomplicated
CPT/HCPCS: 87651; 99212; A9270-GY; G0463

== ENCOUNTER 2017-09-14 18:25 | Emergency (ER) | payer MEDICARE, MEDICAID ==
[2017-09-14 18:49] VITALS: BP 112/70
--- NOTE | 2017-09-14 19:22 | UC ---
Complaint Female HPI - HPI Summary HPI Summary: just release from [facility] d/t respiratory failure due to asthma. Rx with antibiotic and steroids, unsure if she has a catheter in or not---has urinary urgency and perivaginal burning and odor - History Of Current Complaint Chief Complaint: UCGU Stated Complaint: URINARY Time Seen by Provider: 09/14/17 19:13 Hx Obtained From: Patient Hx Last Menstrual Period: 08/08/17 ?: No Onset/Duration: Gradual Onset, Lasting Days - 7, Still Present Timing: Constant Severity Initially: Mild Severity Currently: Mild Character: Burning Aggravating Factor(s): Urination Alleviating Factor(s): Nothing Associated Signs And Symptoms: Positive: Negative Related Hx: - 5, Para - 5 - Allergies/Home Medications Allergies/Adverse Reactions: Allergies Allergy/AdvReac Type Severity Reaction Status Date / Time MS Morphine [Morphine] Allergy Intermediate Hives Verified 05/24/17 20:25 MS Bee Venom [Bee Venom] Allergy Anaphylatic Verified 05/24/17 20:25 Shock MS Clavulanic Acid Allergy Unknown Verified 05/24/17 20:25 [From Augmentin] Reaction Details Home Medications: Home Medications Levothyroxine TAB* [Synthroid 75 MCG TAB*] 75 mg PO DAILY 09/14/17 [History Confirmed 09/14/17] Spiriva Inhaler DEVICE* [Tiotropium Inhaler DEVICE*] 1 each INH DAILY 09/14/17 [ History Confirmed 09/14/17] PMH/Surg Hx/FS Hx/Imm Hx Previously Healthy: No Endocrine History: Hypothyroidism Respiratory History: Asthma - Surgical History Surgical History: Yes Surgery Procedure, Year, and Place: FOUR C SECTIONS,T&A, tubal ligation - Family History Known Family History: Positive: None, Unknown, Cardiac Disease, Diabetes Negative: Respiratory Disease - Social History Occupation: Unemployed Lives: With Family Alcohol Use: None Substance Use Type: None Smoking Status (MU): Never Smoked Tobacco Have You Smoked in the Last Year: No - Immunization History Most Recent Influenza Vaccination: March 2015 Review of Systems Constitutional: Negative Skin: Negative Eyes: Negative ENT: Negative Respiratory: Negative Cardiovascular: Negative Gastrointestinal: Negative Genitourinary: Dysuria, Frequency, Urgency Motor: Negative Neurovascular: Negative Musculoskeletal: Negative Neurological: Negative Psychological: Negative Is Patient Immunocompromised?: No All Other Systems Reviewed And Are Negative: Yes Physical Exam Triage Information Reviewed: Yes Appearance: Well-Appearing, No Pain Distress, Well-Nourished Vital Signs: Initial Vital Signs Temp 98.9 F 09/14/17 18:37 Pulse 74 09/14/17 18:37 Resp 17 09/14/17 18:37 BP 112/70 09/14/17 18:37 Pulse Ox 100 09/14/17 18:37 Vital Signs Reviewed: Yes Eye Exam: Normal Eyes: Positive: Conjunctiva Clear ENT Exam: Normal ENT: Positive: Normal ENT inspection, Hearing grossly normal. Negative: Trismus , Muffled voice, Hoarse voice Dental Exam: Normal Neck exam: Normal Neck: Positive: Supple, Nontender, No Lymphadenopathy Respiratory Exam: Normal Respiratory: Positive: Chest non-tender, Lungs clear, Normal breath sounds, No respiratory distress, No accessory muscle use Cardiovascular Exam: Normal Cardiovascular: Positive: RRR, No Murmur, Pulses Normal, Brisk Capillary Refill Abdominal Exam: Normal Abdomen Description: Positive: Nontender, No Organomegaly, Soft. Negative: CVA Tenderness (R), CVA Tenderness (L), Distended Bowel Sounds: Positive: Present Pelvic Exam: Positive: External Exam Normal, Speculum Exam Normal, Bimanual Exam Normal, No Cerv. Motion Tender, No Masses, Discharge - /odor Musculoskeletal Exam: Normal Musculoskeletal: Positive: Strength Intact, ROM Intact, No Edema Neurological Exam: Normal Neurological: Positive: Alert, Muscle Tone Normal Psychological Exam: Normal Skin Exam: Normal Complaint Female Dx - Course Course Of Treatment: affirm and appitma swabs, urine culture---pyridium, flagyl , diflucan increase fluids follow with pcp - Differential Dx/Diagnosis Provider Diagnoses: dysuria, BV Discharge - Sign-Out/Discharge Documenting (check all that apply): Discharge/Admit/Transfer - Discharge Plan Condition: Stable Disposition: HOME Prescriptions: Fluconazole [Diflucan 150 MG (NF)] 150 mg PO ONCE #1 tab metroNIDAZOLE [Flagyl 500 MG TAB] 500 mg PO BID #14 tab Phenazopyridine TAB* [Pyridium 100 mg TAB*] 100 mg PO TID PRN #6 tab PRN Reason: urinary pain and burning Patient Education Materials: Bacterial Vaginosis (ED), Dysuria (ED) Referrals: Tiffany Roth MD [Primary Care Provider] - 1 Week - Billing Disposition and Condition Condition: STABLE Disposition: Home
== END 2017-09-14 20:19 | disposition home or self-care (01) ==
LOC: UCCORT 18:25
DX: R30.0 Dysuria (principal); N76.0 Acute vaginitis; B96.89 Other specified bacterial agents as the cause of diseases classified elsewhere; Z88.5 Allergy status to narcotic agent; Z88.8 Allergy status to other drugs, medicaments and biological substances; Z91.030 Bee allergy status; J45.909 Unspecified asthma, uncomplicated
CPT/HCPCS: 81003; 84702; 87086; 87480; 87491; 87510; 87591; 87661; 99212; G0463

== ENCOUNTER 2019-06-22 18:57 | Emergency (ER) | payer SELFPAY ==
[2019-06-22] MEDS ORDERED: Ketorolac INJ* 30 MG/ML 1 ML VIAL IM ONE (19:32)
--- NOTE | 2019-06-22 19:34 | UC ---
Complaint Female HPI - HPI Summary HPI Summary: 38 yo female presents with vaginal bleeding (soaking a pad an hour) x 1 day crampy pain hx btl hx molar not dizzy or light headed - History Of Current Complaint Chief Complaint: UCGU Stated Complaint: PERSONAL Time Seen by Provider: 06/22/19 19:02 Hx Obtained From: Patient Hx Last Menstrual Period: 06/12/19 Onset/Duration: Sudden Onset, Lasting Hours Timing: Constant Severity Initially: Mild Severity Currently: Moderate Pain Intensity: 6 Pain Scale Used: 0-10 Numeric Character: Cramping Aggravating Factor(s): Nothing Alleviating Factor(s): Nothing Associated Signs And Symptoms: Positive: Negative, Vaginal Bleeding/Discharge - Allergies/Home Medications Allergies/Adverse Reactions: Allergies Allergy/AdvReac Type Severity Reaction Status Date / Time amoxicillin [From Augmentin] Allergy Shortness Verified 06/22/19 18:58 of Breath bee venom protein (honey bee) Allergy Anaphylatic Verified 06/22/19 18:58 Shock clavulanic acid Allergy Shortness Verified 06/22/19 18:58 [From Augmentin] of Breath morphine Allergy Anaphylatic Verified 06/22/19 18:58 Shock Home Medications: Home Medications Ipratropium HFA INHALER(NF) [Atrovent Hfa Inhaler(NF)] 2 puff INH QID #1 mdi [Rx Confirmed 06/22/19] Omalizumab (NF) [Xolair (NF)] 150 mg SUBCUT MONTHLY 03/21/16 [History Confirmed 06/22/19] EPINEPHrine [Epipen 2-Andi] 0.3 mg IM SEE INSTRUCTIONS #2 inj 09/12/16 [Rx Confirmed 06/22/19] Albuterol HFA INHALER* [Ventolin HFA Inhaler*] 2 puff INH Q4H PRN #1 mdi [Rx Confirmed 06/22/19] Levothyroxine TAB* [Synthroid 75 MCG TAB*] 75 mg PO DAILY 09/14/17 [History Confirmed 06/22/19] Spiriva HANDIHALER DEVICE (NF) [Tiotropium Inhaler DEVICE (NF)] 1 each INH DAILY 09/14/17 [History Confirmed 06/22/19] Levalbuterol 1.25MG/0.5ML NEB* [Xopenex 1.25 MG/0.5 ML NEB.TIFFANIE*] 1.25 mg INH Q4H PRN 06/22/19 [History Confirmed 06/22/19] Medroxyprogesterone Acetate [Provera] 10 mg PO DAILY #7 tablet 06/22/19 [Rx] PMH/Surg Hx/FS Hx/Imm Hx Previously Healthy: Yes Respiratory History: Asthma - Surgical History Surgical History: Yes Surgery Procedure, Year, and Place: FOUR C SECTIONS,T&A, tubal ligation. D&C - Family History Known Family History: Positive: Cardiac Disease, Diabetes Negative: Respiratory Disease - Social History Alcohol Use: None Substance Use Type: None Smoking Status (MU): Never Smoked Tobacco Have You Smoked in the Last Year: No - Immunization History Most Recent Influenza Vaccination: March 2015 Review of Systems All Other Systems Reviewed And Are Negative: Yes Constitutional: Positive: Negative Skin: Positive: Negative Eyes: Positive: Negative ENT: Positive: Negative Respiratory: Positive: Negative Cardiovascular: Positive: Negative Gastrointestinal: Positive: Negative Genitourinary: Positive: Negative Motor: Positive: Negative Neurovascular: Positive: Negative Musculoskeletal: Positive: Negative Neurological/Mental Status: Positive: Negative Psychological: Positive: Negative Physical Exam Triage Information Reviewed: Yes Appearance: Well-Appearing, No Pain Distress Vital Signs: Initial Vital Signs Temp 98.3 F 06/22/19 19:00 Pulse 80 06/22/19 19:00 Resp 18 06/22/19 19:00 BP 121/60 06/22/19 19:00 Pulse Ox 100 06/22/19 19:00 Vital Signs Reviewed: Yes Eyes: Positive: Conjunctiva Clear ENT: Positive: Hearing grossly normal, Uvula midline. Negative: Nasal congestion, Nasal drainage, Tonsillar swelling, Tonsillar exudate, Hoarse voice Dental Exam: Normal Neck: Positive: Supple, Nontender, No Lymphadenopathy Respiratory: Positive: Lungs clear, Normal breath sounds, No respiratory distress, No accessory muscle use Cardiovascular: Positive: RRR, No Murmur Abdomen Description: Positive: Nontender, No Organomegaly, Soft. Negative: CVA Tenderness (R), CVA Tenderness (L) Bowel Sounds: Positive: Present Pelvic Exam: Positive: No Cerv. Motion Tender, Active Bleeding - scant, Tender Uterus. Negative: Tender w/ Cervical Motion Musculoskeletal: Positive: ROM Intact, No Edema Neurological: Positive: Alert Psychological Exam: Normal Skin Exam: Normal Diagnostics - Laboratory Lab Results: [facility] [place] NEGATIVE blood work attempted by multiple RNs...unable to obtain due to being a difficult stick Complaint Female Dx - Course Course Of Treatment: unable to obtain blood work she does not want to go to the ER tonight - Differential Dx/Diagnosis Provider Diagnosis: Abnormal uterine bleeding (AUB) Discharge ED - Sign-Out/Discharge Documenting (check all that apply): Patient Departure All imaging exams completed and their final reports reviewed: No Studies - Discharge Plan Condition: Stable Disposition: HOME Prescriptions: Medroxyprogesterone Acetate [Provera] 10 mg PO DAILY #7 tablet Patient Education Materials: Menorrhagia (ED) Referrals: Shun Zaragoza MD [Medical Doctor] - As Soon As Possible Additional Instructions: TO ER FOR WORSENING SYMPTOMS...ESPECIALLY IF YOU FEEL DIZZY OR LIGHT HEADED PLEASE CALL ME HERE AT [phone] AFTER 2:30 if you are not feeling better you need to get in to see your discharge coordinator as soon as possible you may need further tests like an ultrasound or uterine biopsy you could require a D&C if your bleeding persists/worsens - Billing Disposition and Condition Condition: STABLE Disposition: Home
[2019-06-22 21:05] VITALS: BP 137/60
[2019-06-24 11:51] LABS: Chlamydia trachomatis NAA Negative (Negative); Neisseria gonorrhoeae (GC) NAA Negative (Negative)
[2019-06-24 12:01] LABS: Trichomonas vag NAA Female Negative (Negative)
--- NOTE | 2019-06-25 08:24 | UC ---
- Progress Note Progress Note: please call the pt. with her lab results + Gardnerella ./ BV will call in Flagy 500 mg bid x 7 days Course/Dx - Diagnoses Provider Diagnoses: Abnormal uterine bleeding (AUB) Discharge ED - Sign-Out/Discharge Documenting (check all that apply): Patient Departure All imaging exams completed and their final reports reviewed: No Studies - Discharge Plan Condition: Stable Disposition: HOME Prescriptions: Medroxyprogesterone Acetate [Provera] 10 mg PO DAILY #7 tablet metroNIDAZOLE [Flagyl] 500 mg PO BID #14 tablet Patient Education Materials: Menorrhagia (ED) Referrals: Shun Zaragoza MD [Medical Doctor] - As Soon As Possible Additional Instructions: TO ER FOR WORSENING SYMPTOMS...ESPECIALLY IF YOU FEEL DIZZY OR LIGHT HEADED PLEASE CALL ME HERE AT [phone] AFTER 2:30 if you are not feeling better you need to get in to see your web consultant as soon as possible you may need further tests like an ultrasound or uterine biopsy you could require a D&C if your bleeding persists/worsens - Billing Disposition and Condition Condition: STABLE Disposition: Home
== END 2019-06-22 21:12 | disposition home or self-care (01) ==
LOC: UCCORT 18:57
DX: N93.9 Abnormal uterine and vaginal bleeding, unspecified (principal); Z32.02 Encounter for pregnancy test, result negative; J45.909 Unspecified asthma, uncomplicated; Z88.5 Allergy status to narcotic agent; Z88.0 Allergy status to penicillin; Z88.1 Allergy status to other antibiotic agents; Z91.030 Bee allergy status
CPT/HCPCS: 84702; 87480; 87491; 87510; 87591; 87661; 96372; 99213; G0463; J1885